=== PATIENT | female | born 1985 | race Caucasian/White ===

== ENCOUNTER 2017-11-25 11:03 | Emergency (ER) | payer MEDICAID ==
[2017-11-25 12:02] VITALS: BP 138/60
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
== END 2017-11-25 12:23 | disposition home or self-care (01) ==
LOC: UCCORT 11:03
DX: S87.01XA Crushing injury of right knee, initial encounter (principal); S87.81XA Crushing injury of right lower leg, initial encounter; V86.59XD Driver of other special all-terrain or other off-road motor vehicle injured in nontraffic accident, subsequent encounter; F17.210 Nicotine dependence, cigarettes, uncomplicated
CPT/HCPCS: 99212; G0463